=== PATIENT | female | born 1930 | race Caucasian/White ===

== ENCOUNTER 2017-01-27 19:21 | Inpatient (IN) | payer MEDICARE, OTHER ==
[~2017-01-27] VITALS: Ht 160 cm; Wt 52.5 kg
[2017-01-27] MEDS ORDERED: ONDANSETRON 2MG/ML, 2ML ONE (19:27)
[2017-01-27] MEDS ORDERED: ONDANSETRON 2MG/ML, 2ML IVPush ONE (19:30)
[2017-01-27] MEDS ORDERED: SODIUM CHLORIDE FLUSH 10ML SYR IVF ONE (19:30)
[2017-01-27 20:04] LABS: HEMOGLOBIN 12.3 g/dL (11.7-16.4)
[2017-01-27 20:18] LABS: ASPARTATE AMINO TRANSFERASE 17 U/L (15-37); BLOOD UREA NITROGEN 27 mg/dL (7-18)
[2017-01-27] MEDS ORDERED: NITROGLYCERIN OINT 2%, 1GM TP ONE ×2 (20:20→20:30)
[2017-01-27 20:24] LABS: IS PT STATUS REG ER OR PRE ER? YES
[2017-01-27] MEDS ORDERED: SODIUM CHLORIDE 0.9% 1,000ML IVBOLUS ONE (20:30)
[2017-01-27] MEDS ORDERED: ONDANSETRON ODT 4 MG PO PRN (21:30)
[2017-01-27] MEDS ORDERED: POLYETHYLENE GLYCOL 17 GM PACKET PO PRN (21:30)
[2017-01-27] MEDS ORDERED: HEPARIN 5,000 UNITS/ML, 1ML SQ SCH (21:30)
[2017-01-27] MEDS ORDERED: DOCUSATE 100 MG CAPSULE PO PRN (21:30)
[2017-01-27] MEDS ORDERED: TRAZODONE 50MG TABLET PO PRN (21:30)
[2017-01-27] MEDS ORDERED: ACETAMINOPHEN 325 MG TABLET PO PRN (21:30)
[2017-01-27] MEDS ORDERED: LABETALOL 5MG/ML, 20ML IV PRN (21:30)
[2017-01-27] MEDS ORDERED: BISACODYL 10 MG SUPP PR PRN (21:30)
[2017-01-27 21:58] VITALS: BP 121/65
[2017-01-27] MEDS: NS + 20MEQ KCL 1,000 ML IV SCH (23:30)
[2017-01-27] MEDS: ATORVASTATIN 80 MG TABLET PO SCH (23:30)
[2017-01-28 00:50] LABS: PATH.CAST-FLAG NOT PRESENT; SPERM-FLAG NOT PRESENT; SRC-FLAG NOT PRESENT; XTAL-FLAG NOT PRESENT; YLC-FLAG NOT PRESENT
[2017-01-28 01:10] LABS: IS PT STATUS REG ER OR PRE ER? NO
[2017-01-28] MEDS ORDERED: HEPARIN 5,000 UNITS/ML, 1ML IV ONE (02:00)
[2017-01-28] MEDS ORDERED: HEPARIN 5,000 UNITS/ML, 1ML IV PRN (02:00)
[2017-01-28] MEDS ORDERED: HEPARIN 25,000 UNITS/500ML PMX 500 ML IV PRN (02:00)
[2017-01-28 02:41] LABS: ASPARTATE AMINO TRANSFERASE 26 U/L (15-37); BLOOD UREA NITROGEN 21 mg/dL (7-18)
[2017-01-28] MEDS: CEFTRIAXONE PMX 2GM/50ML 50 ML IV SCH (02:49)
[2017-01-28 03:18] VITALS: BP 126/73
[2017-01-28 07:25] LABS: IS PT STATUS REG ER OR PRE ER? NO
[2017-01-28 08:13] VITALS: BP 153/80
[2017-01-28] MEDS: ASPIRIN 81 MG TABLET CHEW PO SCH (08:55)
[2017-01-28] MEDS: NS + 20MEQ KCL 1,000 ML IV SCH ×2 (12:02→22:46)
[2017-01-28 13:21] VITALS: BP 130/72
[2017-01-28 16:45] LABS: IS PT STATUS REG ER OR PRE ER? NO
[2017-01-28 20:25] VITALS: BP 127/66
[2017-01-28] MEDS: ATORVASTATIN 80 MG TABLET PO SCH (22:43)
[2017-01-29 01:54] VITALS: BP 175/88
[2017-01-29] MEDS: CEFTRIAXONE PMX 2GM/50ML 50 ML IV SCH (02:00)
[2017-01-29 07:34] VITALS: BP 169/77
[2017-01-29 08:25] LABS: HEMOGLOBIN 12.6 g/dL (11.7-16.4)
[2017-01-29] MEDS: LISINOPRIL 5 MG TABLET PO SCH (08:33)
[2017-01-29] MEDS: NS + 20MEQ KCL 1,000 ML IV SCH ×2 (08:34→21:38)
[2017-01-29] MEDS: ASPIRIN 81 MG TABLET CHEW PO SCH (08:34)
[2017-01-29 08:49] LABS: IS PT STATUS REG ER OR PRE ER? NO
[2017-01-29 08:52] LABS: BLOOD UREA NITROGEN 14 mg/dL (7-18)
[2017-01-29] MEDS ORDERED: FENTANYL PF 100 MCG/2ML ONE (13:23)
[2017-01-29] MEDS ORDERED: MIDAZOLAM 1 MG/ML, 5ML ONE (13:23)
[2017-01-29] MEDS ORDERED: HEPARIN 1,000 UNITS/ML, 10ML ONE (13:23)
[2017-01-29] MEDS ORDERED: BIVALIRUDIN 250 MG ONE (13:23)
[2017-01-29] MEDS ORDERED: VERAPAMIL 2.5 MG/ML, 2ML ONE (13:23)
[2017-01-29] MEDS ORDERED: TICAGRELOR 90 MG TABLET ONE (13:23)
[2017-01-29] MEDS ORDERED: LIDOCAINE 2%, 20ML ONE (13:23)
[2017-01-29] MEDS ORDERED: SODIUM CHLORIDE 0.9% 1,000 ML IV SCH (14:13)
[2017-01-29 15:43] VITALS: BP 168/84
[2017-01-29 19:45] VITALS: BP_SYST 164; BP_DIAS 71; BP_DIAS 72
[2017-01-29] MEDS: ATORVASTATIN 80 MG TABLET PO SCH (20:27)
[2017-01-30 01:20] VITALS: BP 160/77
[2017-01-30] MEDS: CEFTRIAXONE PMX 2GM/50ML 50 ML IV SCH (02:07)
[2017-01-30] MEDS: NS + 20MEQ KCL 1,000 ML IV SCH (06:46)
[2017-01-30 07:57] VITALS: BP 160/77
[2017-01-30] MEDS: ASPIRIN 81 MG TABLET CHEW PO SCH (08:09)
[2017-01-30] MEDS: LISINOPRIL 5 MG TABLET PO SCH (08:09)
[2017-01-30] MEDS ORDERED: LISINOPRIL 10 MG TABLET PO SCH (09:00)
[2017-01-30] MEDS ORDERED: CLOPIDOGREL 75 MG TABLET PO SCH (09:00)
[2017-01-30] MEDS ORDERED: ASPI-650 PO (09:06)
[2017-01-30] MEDS ORDERED: ASPI-515 PO (09:33)
[2017-01-30] MEDS ORDERED: CEFD300C2 PO (09:33)
[2017-01-30] MEDS ORDERED: ATOR20TA PO (09:33)
[2017-01-30] MEDS ORDERED: LISI-167 PO (09:33)
[2017-01-30] MEDS ORDERED: CLOP75TA22 PO (09:33)
== END 2017-01-30 13:10 | disposition home or self-care (01) | DRG 281 ==
LOC: ED 21:00 → EDIP 21:10 → 5SO 21:41 → DCLOUNGE 01-30 11:45
PROVIDERS: ADMIT Internal Medicine; ATTEND Internal Medicine
PROC: 0T9B70Z Drainage of Bladder with Drainage Device, Via Natural or Artificial Opening (ICD-10-PCS; 2017-01-27)
PROC: B2151ZZ Fluoroscopy of Left Heart using Low Osmolar Contrast (ICD-10-PCS; principal; 2017-01-29)
PROC: B2111ZZ Fluoroscopy of Multiple Coronary Arteries using Low Osmolar Contrast (ICD-10-PCS; 2017-01-29)
PROC: 4A023N7 Measurement of Cardiac Sampling and Pressure, Left Heart, Percutaneous Approach (ICD-10-PCS; 2017-01-29)
DX: I21.4 Non-ST elevation (NSTEMI) myocardial infarction (principal); N39.0 Urinary tract infection, site not specified; E44.0 Moderate protein-calorie malnutrition; I50.32 Chronic diastolic (congestive) heart failure; R55 Syncope and collapse; I25.119 Atherosclerotic heart disease of native coronary artery with unspecified angina pectoris; D72.828 Other elevated white blood cell count; E87.6 Hypokalemia; B96.20 Unspecified Escherichia coli [E. coli] as the cause of diseases classified elsewhere; I11.0 Hypertensive heart disease with heart failure; Z79.82 Long term (current) use of aspirin; Z95.5 Presence of coronary angioplasty implant and graft; Z82.49 Family history of ischemic heart disease and other diseases of the circulatory system
CPT/HCPCS: 36415; 71010; 80048; 80053; 80061; 81001; 83735; 84439; 84443; 84484; 85025; 85520; 85610; 87077; 87086; 87186; 93005; 93306; 93458; 96360; C1894; J0583; J0696; J1644; J2250; J2405; J3010; J3480; J3490; J7030; Q9967